=== PATIENT | female | born 1980 | race Caucasian/White ===

== ENCOUNTER 2017-04-09 15:03 | Emergency (ER) | payer MEDICAID ==
[~2017-04-09] VITALS: Ht 157.5 cm; Wt 100.0 kg
[2017-04-09 15:06] VITALS: BP 171/87; PULSE 84; RESP 20; TEMP 99; O2SAT 96
[2017-04-09] MEDS ORDERED: SODIUM CHLOR 0.9% 1000 ML INJ 1,000 ML IV SCH (16:06)
[2017-04-09] MEDS ORDERED: ONDANSETRON HCL 4 MG/2 ML VIAL IVP ONE (16:15)
[2017-04-09] MEDS ORDERED: HYDROmorphone HCL PF 1 MG/ML VIAL IVS ONE (16:15)
[2017-04-09] MEDS ORDERED: SODIUM CHLORIDE 0.9% FLUSH 10 ML FLUSH IV FLUSH PRN (16:15)
--- NOTE | 2017-04-09 16:20 | PD ---
HPI Chief Complaint: Abdominal Pain Time Seen by Provider: 16:05 Travel History International Travel<30 days: No Contact w/Intl Traveler<30days: No Traveled to known affect area: No History of Present Illness HPI 2 DAYS OF UPPER ABD PAIN, [facility] N[facility]V/[facility] Past Medical History Asthma: Yes Diminished Hearing: No Tetanus Vaccination: < 5 Years Influenza Vaccination: Yes ?: Not Para: 2 Past Surgical History Section: Yes (x2) Social History Alcohol Use: No Tobacco Use: Yes (Pack every 3-4 days) Substance Use: No Allergies-Medications (Allergen,Severity, Reaction): Coded Allergies: No Known Allergies (Unverified , 04/09/17) Reported Meds & Prescriptions Reported Meds & Active Scripts Active No Active Prescriptions or Reported Medications Review of Systems Gastrointestinal: Positive: Abdominal Pain Physical Exam Narrative GENERAL: SKIN: Warm and dry. HEAD: Atraumatic. Normocephalic. EYES: Pupils equal and round. No scleral icterus. No injection or drainage. ENT: No nasal bleeding or discharge. Mucous membranes pink and moist. NECK: Trachea midline. No JVD. CARDIOVASCULAR: Regular rate and rhythm. RESPIRATORY: No accessory muscle use. Clear to auscultation. Breath sounds equal bilaterally. GASTROINTESTINAL: Abdomen soft, OBESE, EPIG AND RUQ TTP, NO REBOUND/GUARDING/ RIGIDITY NOTED MUSCULOSKELETAL: Extremities without clubbing, cyanosis, or edema. No obvious deformities. NEUROLOGICAL: Awake and alert. No obvious cranial nerve deficits. Motor grossly within normal limits. Five out of 5 muscle strength in the arms and legs. Normal speech. PSYCHIATRIC: Appropriate mood and affect; insight and judgment normal. Data Data Last Documented VS Vital Signs Date Time Temp Pulse Resp B/P Pulse Ox O2 Delivery O2 Flow Rate FiO2 04/09/17 16:43 99.8 18 143/67 94 04/09/17 15:06 84 Room Air Orders Complete Blood Count With Diff (04/09/17 16:06) Comprehensive Metabolic Panel (04/09/17 16:06) Lipase (04/09/17 16:06) Prothrombin Time / Inr (Pt) (04/09/17 16:06) Act Partial Throm Time (Ptt) (04/09/17 16:06) Urinalysis - C+S If Indicated (04/09/17 16:06) Iv Access Insert/Monitor (04/09/17 16:06) Ecg Monitoring (04/09/17 16:06) Oximetry (04/09/17 16:06) Ondansetron Inj (Zofran Inj) (04/09/17 16:15) Sodium Chlor 0.9% 1000 Ml Inj (Ns 1000 M (04/09/17 16:06) Sodium Chloride 0.9% Flush (Ns Flush) (04/09/17 16:15) Electrocardiogram (04/09/17 16:06) Hydromorphone Pf Inj (Dilaudid Pf Inj) (04/09/17 16:15) Ed Urine Pregnancytest Poc (04/09/17 16:06) Ct Abd/Pel W/O Iv Contrast (04/09/17 16:06) NPO (04/09/17 16:22) Labs Laboratory Tests Test 04/09/17 16:15 White Blood Count 11.0 TH/MM3 Red Blood Count 4.61 MIL/MM3 Hemoglobin 14.6 GM/DL Hematocrit 42.4 % Mean Corpuscular Volume 92.0 FL Mean Corpuscular Hemoglobin 31.7 PG Mean Corpuscular Hemoglobin 34.4 % Concent Red Cell Distribution Width 13.3 % Platelet Count 181 TH/MM3 Mean Platelet Volume 9.8 FL Neutrophils (%) (Auto) 87.1 % Lymphocytes (%) (Auto) 7.3 % Monocytes (%) (Auto) 4.3 % Eosinophils (%) (Auto) 1.1 % Basophils (%) (Auto) 0.2 % Neutrophils # (Auto) 9.6 TH/MM3 Lymphocytes # (Auto) 0.8 TH/MM3 Monocytes # (Auto) 0.5 TH/MM3 Eosinophils # (Auto) 0.1 TH/MM3 Basophils # (Auto) 0.0 TH/MM3 CBC Comment DIFF FINAL Differential Comment Prothrombin Time 10.7 SEC Prothromb Time International 1.0 RATIO Ratio Activated Partial 28.5 SEC Thromboplast Time Urine Color YELLOW Urine Turbidity CLEAR Urine pH 8.5 Urine Specific [place] 1.019 Urine Protein TRACE mg/dL Urine Glucose (UA) NEG mg/dL Urine Ketones NEG mg/dL Urine Occult Blood NEG Urine Nitrite NEG Urine Bilirubin NEG Urine Urobilinogen LESS THAN 2.0 MG/DL Urine Leukocyte Esterase NEG Urine RBC 1 /hpf Urine WBC 1 /hpf Urine Squamous Epithelial 1 /hpf Cells Urine Mucus FEW /lpf Microscopic Urinalysis Comment CULT NOT INDICATED Sodium Level 142 MEQ/L Potassium Level 3.7 MEQ/L Chloride Level 105 MEQ/L Carbon Dioxide Level 27.5 MEQ/L Anion Gap 10 MEQ/L Blood Urea Nitrogen 7 MG/DL Creatinine 0.62 MG/DL Estimat Glomerular Filtration 110 ML/MIN Rate Random Glucose 96 MG/DL Calcium Level 8.5 MG/DL Total Bilirubin 0.4 MG/DL Aspartate Amino Transf 26 U/L (AST/SGOT) Alanine Aminotransferase 60 U/L (ALT/SGPT) Alkaline Phosphatase 67 U/L Total Protein 7.4 GM/DL Albumin 3.6 GM/DL Lipase 124 U/L [facility] Medical Decision Making Medical Screen Exam Complete: Yes Emergency Medical Condition: Yes Medical Record Reviewed: Yes Differential Diagnosis VOLVULUS, MESENTERIC ISCHEMIA, PANCREATITIS, BILIARY COLIC, SBO, DIVERTICULAR DZ , Narrative Course PT NOTED ON BEDSIDE USS TO HAVE NO GALLSTONES, NO GB WALL THICKENING AND NO PERICHOLECYSTIC FLUID, TOO OBESE TO EVAL AORTA, WILL ORDER CT TO EVAL FOR DIFFERENTIAL Diagnosis Primary Impression: Abdominal pain Qualified Code: R10.10 - Pain of upper abdomen Med/Other Pt SpecificInfo: Prescription(s) given Scripts Ondansetron Odt (Zofran Odt)4 Mg Tab4 Mg SL Q8HR PRN (Nausea/Vomiting) #30 TAB Ref 0 Prov:Arthur Russell MD 04/09/17 Tramadol (Ultram)50 Mg Tab50 Mg PO Q6H PRN (PAIN) #20 TAB Ref 0 Prov:Arthur Russell MD 04/09/17 Disposition: 01 DISCHARGE HOME Condition: Stable Arthur Russell MD April 09, 2017 16:20
[2017-04-09 16:33] LABS: AUTOMATED NEUTROPHIL # 9.6 TH/MM3 (1.8-7.7); BASOPHIL % 0.2 % (0.0-2.0); EOSINOPHIL # 0.1 TH/MM3 (0-0.4); EOSINOPHIL % 1.1 % (0.0-4.0); HEMATOCRIT 42.4 % (35.0-46.0); HEMO FLAGS DIFF FINAL; LYMPH % 7.3 % (9.0-44.0); LYMPHOCYTE # 0.8 TH/MM3 (1.0-4.8); MEAN CORPUSCULAR HEMOGLOBIN 31.7 PG (27.0-34.0); MEAN CORPUSCULAR HGB CONC 34.4 % (32.0-36.0); MONO % 4.3 % (0.0-8.0); NEUT % 87.1 % (16.0-70.0); PLATELET COUNT 181 TH/MM3 (150-450); RED BLOOD COUNT 4.61 MIL/MM3 (4.00-5.30); RED CELL DISTRIBUTION WIDTH 13.3 % (11.6-17.2)
[2017-04-09 16:43] VITALS: BP 143/67; RESP 18; TEMP 99.8; O2SAT 94
[2017-04-09 16:43] LABS: APTT (PATIENT) 28.5 SEC (24.3-30.1); PROTHROMBIN TIME - PATIENT 10.7 SEC (9.8-11.6)
[2017-04-09 16:46] LABS: BLOOD, URINE NEG (NEG); COMMENT (UR) CULT NOT INDICATED; CULTURE IF INDICATED CULT NOT INDICATED; GLUCOSE,URINE NEG (NEG); KETONE, URINE NEG (NEG); MUCUS URINE FEW /lpf (OCC); NITRITE,URINE NEG (NEG); PH, URINE 8.5 (5.0-8.5); SQUAMOUS EPITHELIAL CELL URINE 1 /hpf (0-5); URINE COLOR YELLOW (YELLW/STRAW)
[2017-04-09 17:20] LABS: ANION GAP 10 MEQ/L (5-15); AST (GOT) 26 U/L (15-37); BICARBONATE 27.5 MEQ/L (21.0-32.0); BLOOD UREA NITROGEN 7 MG/DL (7-18); CHLORIDE 105 MEQ/L (98-107); GLOMERULAR FILTRATION RATE 110 ML/MIN (>89); POTASSIUM 3.7 MEQ/L (3.5-5.1); SODIUM (NA) 142 MEQ/L (136-145)
[2017-04-09 17:24] LABS: ALKALINE PHOSPHATASE 67 U/L (45-117); ALT (GPT) 60 U/L (10-53); TOTAL BILIRUBIN ADULT 0.4 MG/DL (0.2-1.0)
--- NOTE | 2017-04-09 17:25 | RADRPT ---
EXAM DATE/TIME: 04/09/2017 16:47 [place] COMPARISON: No previous studies available for comparison. INDICATIONS : Diffuse abdomen pain with nausea. ORAL CONTRAST: No oral contrast ingested. RADIATION DOSE: 16.9 CTDIvol (mGy) MEDICAL HISTORY : None SURGICAL HISTORY : section. ENCOUNTER: Initial ACUITY: 2 days PAIN SCALE: 10/10 LOCATION: Bilateral upper quadrant TECHNIQUE: Volumetric scanning of the abdomen and pelvis was performed. Using automated exposure control and ad justment of the mA and/or kV according to patient size, radiation dose was kept as low as reasonably achievable to obtain optimal diagnostic quality images. FINDINGS: Examination of the lung bases demonstrates no abnormality. No pleural fluid is identified. No pulmona ry nodules are present. There is decreased density of the liver with respect to the spleen compatible with fatty infiltration. The spleen is unremarkable. There is a single stone within the right kidney without hydronephrosis measuring 2 mm in the midpole. The left kidney is unremarkable. The gallbladd er and pancreas are unremarkable. No intrahepatic or extrahepatic ductal dilatation is seen. The adre nal glands are unremarkable. Examination of the right lower quadrant demonstrates no abnormality. The appendix is identified and appears normal. CONCLUSION: 1. No evidence of acute abdominal or pelvic process. No masses are identified. 2. Hypodense liver compatible with fatty infiltration or hepatocellular disease. Tian Bhatia MD on April 09, 2017 at 17:21 Board Certified Radiologist. This report was verified electronically.
[2017-04-09] MEDS ORDERED: ULTR50TA5 PO (17:29)
[2017-04-09] MEDS ORDERED: ZOFR4TAB3 SL (17:29)
--- NOTE | 2017-04-10 13:48 | EKG ---
Date Performed: 04/09/2017 Time Performed: 16:33:15 PTAGE: 37 years EKG: Sinus rhythm WITH MARKED SINUS ARRHYTHMIA MINIMAL VOLTAGE CRITERIA FOR LVH, CONSIDER NORMAL VARIANT NONSPECIFIC T -WAVE ABNORMALITY BORDERLINE ECG NO PREVIOUS TRACING DOCTOR: Praneeth Deleon Interpretating Date/Time 04/10/2017 13:43:23
== END 2017-04-09 18:09 | disposition home or self-care (01) ==
LOC: NEPE 15:03
DX: R10.10 Upper abdominal pain, unspecified (principal); R94.31 Abnormal electrocardiogram [ECG] [EKG]
CPT/HCPCS: 74176; 80053; 81001; 83690; 84703; 85025; 85610; 85730; 93005; 96374; 96375; 99284; J1170; J2405